=== PATIENT | female | born 1970 | race Two or more races ===

== ENCOUNTER 2018-06-07 19:50 | Emergency (ER) | payer OTHER ==
[~2018-06-07] VITALS: Ht 149.9 cm; Wt 63.5 kg
[2018-06-07] MEDS ORDERED: HYDROCHLOROT PO (20:29)
== END 2018-06-07 23:09 | disposition home or self-care (01) ==
LOC: ER 19:50
DX: K29.60 Other gastritis without bleeding (principal); R51 Headache